=== PATIENT | female | born 1990 ===

== ENCOUNTER 2021-12-23 10:43 | Emergency (ER) | payer MEDICAID ==
[~2021-12-23] VITALS: Ht 162.6 cm; Wt 52.3 kg
[~2021-12-23 10:43] MED LIST: AMOXICILLIN 50500 MG PO; AUGMENTIN 875 M1 TAB PO; BCP; BCP TD; GUAIFEN-PSE 6001 TER PO; LORTAB 5/500 501 TAB PO; MOTRIN 600600 MG/TAB PO; NEXIUM 40MG40 MG PO; NEXIUM PO; NEXIUM40 MG PO; NORCOELIX PO; ORTHO TRI-CYCLE1 TA2 PO; OXYCODONE H5 MG/5 ML PO; PENICILLIN V500 MG PO; PERCOCET 325 MG1 TA2 PO; PHENERGAN W/CO120 M1 PO; SUDAFED 30M30 MG/TAB PO; TYLENOL 500MG500 MG PO; VICODIN 5/5001 UDTAB PO; YAZ 28 3 MG-0.01 TAB PO; ZITHROMAX Z PA250 MG PO; ZOFRAN ODT4 MG PO; ZOVIRAX200 MG PO; ZYRTEC 10MG10 MG PO
[2021-12-23 11:10] VITALS: TEMP 98
[2021-12-23 11:22] LABS: BASO # 0.1 K/mm3 (0.0-0.2); BASO % 0.4 % (0.0-2.0); EOS % 0.1 % (0.0-4.0); GRAN # 11.8 K/mm3 (1.4-6.5); GRAN % 87.9 % (42.2-75.2); HEMATOCRIT 39.2 % (37.0-47.0); HEMOGLOBIN 12.2 g/dl (12.5-16.0); LYMPH % 7.7 % (20.0-51.0); MEAN CELL VOLUME 80 fl (80.0-100.0); MEAN CORPUSCULAR HEMOGLOBIN 25 pg (27-31); MEAN CORPUSCULAR HGB CONC 31 g/dl (33.0-37.0); MEAN PLATELET VOLUME 9.1 fl (7.4-10.4); MONO # 0.5 K/mm3 (0.1-0.6); MONO % 3.6 % (1.7-9.3); PLATELET COUNT 458 K/mm3 (130-400); RED BLOOD COUNT 4.88 M/mm3 (4.10-5.30); REDCELL DISTRIBUTION WIDTH-CV 14.4 % (11.5-14.5)
[2021-12-23 11:38] LABS: ALBUMIN 4.5 gm/dL (3.5-5.0); BILIRUBIN,TOTAL 0.4 mg/dL (0.2-1.2); CALCIUM 9.9 mg/dL (8.4-10.2); CREATININE, serum 1.04 mg/dL (0.57-1.11); POTASSIUM 3.8 mmol/L (3.5-4.5); TOTAL PROTEIN 7.9 gm/dL (6.2-8.1)
[2021-12-23 12:20] LABS: COLLECTION METHOD CLEAN CATCH
[2021-12-23 12:50] LABS: MUCOUS Present (NOT PRESENT); PH 5 (5-8); URINE APPEARANCE Hazy (CLEAR/HAZY); URINE BACTERIA None Seen /hpf (NONE SEEN); URINE BLOOD 3+ (NEGATIVE); URINE COLOR Yellow (YELLOW); URINE GLUCOSE Negative (NEGATIVE); URINE KETONE Negative (NEGATIVE); URINE NITRATE Negative (NEGATIVE); URINE PROTEIN(semi-quant) 1+ (NEGATIVE); URINE RBC >50 /hpf (0-2); URINE UROBILINOGEN Negative (NEGATIVE)
[2021-12-23] MEDS ORDERED: TORADOL 10MG TA10 MG PO (13:16)
[2021-12-23] MEDS ORDERED: ZOFRAN ODT4 MG PO (13:16)
[2021-12-23 13:50] VITALS: BP 121/71; PULSE 77
== END 2021-12-23 14:05 | disposition home or self-care (01) ==
LOC: COL.ER 10:43
PROVIDERS: Emergency Medicine
DX: N20.9 Urinary calculus, unspecified (principal); D72.829 Elevated white blood cell count, unspecified; Z32.02 Encounter for pregnancy test, result negative
CPT/HCPCS: J1885; J2405; J7030

== ENCOUNTER 2022-03-19 10:00 | Emergency (ER) | payer MEDICAID ==
[~2022-03-19] VITALS: Ht 162.6 cm; Wt 50.0 kg
[~2022-03-19 10:00] MED LIST changes: +TORADOL 10MG TA10 MG PO
[2022-03-19 10:08] VITALS: TEMP 97.8
[2022-03-19 10:37] LABS: COLLECTION METHOD CLEAN CATCH
[2022-03-19 10:40] LABS: BASO % 0.2 % (0.0-2.0); GRAN # 7.4 K/mm3 (1.4-6.5); GRAN % 86.3 % (42.2-75.2); HEMATOCRIT 40.1 % (37.0-47.0); HEMOGLOBIN 13.3 g/dl (12.5-16.0); LYMPH # 0.9 K/mm3 (1.2-3.4); LYMPH % 10.1 % (20.0-51.0); MEAN CELL VOLUME 81 fl (80.0-100.0); MEAN CORPUSCULAR HEMOGLOBIN 27 pg (27-31); MEAN CORPUSCULAR HGB CONC 33 g/dl (33.0-37.0); MEAN PLATELET VOLUME 9.3 fl (7.4-10.4); MONO # 0.3 K/mm3 (0.1-0.6); MONO % 3.2 % (1.7-9.3); PLATELET COUNT 353 K/mm3 (130-400); RED BLOOD COUNT 4.95 M/mm3 (4.10-5.30); REDCELL DISTRIBUTION WIDTH-CV 15.1 % (11.5-14.5)
[2022-03-19 10:54] LABS: URINE BACTERIA None Seen /hpf (NONE SEEN); URINE COLOR Amber (YELLOW); URINE RBC >50 /hpf (0-2)
[2022-03-19 10:55] LABS: PH 5.5 (5.0-8.5); URINE APPEARANCE Hazy (CLEAR/HAZY); URINE GLUCOSE Negative (NEGATIVE); URINE KETONE TRACE (NEGATIVE); URINE NITRATE Negative (NEGATIVE); URINE PROTEIN(semi-quant) 1+ (NEGATIVE); URINE UROBILINOGEN 0.2 E.U/dL (0.2-1.0)
[2022-03-19 10:56] LABS: URINE BLOOD 3+ (NEGATIVE)
[2022-03-19 11:03] LABS: ALBUMIN 4.6 gm/dL (3.5-5.0); BILIRUBIN,TOTAL 0.4 mg/dL (0.2-1.2); C-REACTIVE PROTEIN 0.02 mg/dL (0.00-0.50); CALCIUM 9.3 mg/dL (8.4-10.2); CREATININE, serum 0.79 mg/dL (0.57-1.11); POTASSIUM 3.9 mmol/L (3.5-4.5); TOTAL PROTEIN 7.6 gm/dL (6.2-8.1)
[2022-03-19] MEDS ORDERED: ZOFRAN ODT4 MG PO (12:03)
[2022-03-19] MEDS ORDERED: TORADOL 10MG TA10 MG PO (12:03)
[2022-03-19] MEDS ORDERED: CEPHALEXIN500 M1 PO (12:03)
[2022-03-19 12:13] VITALS: BP 117/70; PULSE 71
== END 2022-03-19 12:15 | disposition home or self-care (01) ==
LOC: COL.ER 10:00
PROVIDERS: Emergency Medicine
DX: N39.0 Urinary tract infection, site not specified (principal); N20.0 Calculus of kidney; Z32.02 Encounter for pregnancy test, result negative
CPT/HCPCS: J1885; J2405; J7030; Q9967